=== PATIENT | female | born 1995 | race Caucasian/White ===

== ENCOUNTER 2018-04-30 09:50 | Emergency (ER) | payer SELFPAY ==
--- NOTE | 2018-04-30 10:46 | ED ---
GI/ HPI - HPI Summary HPI Summary: Pt. is a 23 y.o female who presents to the ER for evaluation of baumann catheter. Pt. states she was seen in [place] 3 days ago for urinary retention. She states they placed an indwelling baumann catheter and sent her home. Pt. presents today for further evaluation. She has no past medical history and denies taking any medications, rx or OTC. Denies recent surgery. 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 Pt. states pain occasionally radiates to bilateral legs with occasional parenthesias. She states she is ambulating without difficulty or weakness. Denies recent fever or illness. Symptoms are moderate in severity. No current modifying factors. - History of Current Complaint Chief Complaint: EDUrogenitalProblems Time Seen by Provider: 04/30/18 10:00 Stated Complaint: URINARY TRACT ISSUE Hx Obtained From: Patient Hx Last Menstrual Period: 10/18/15 Pain Intensity: 0 - Allergy/Home Medications Allergies/Adverse Reactions: Allergies Allergy/AdvReac Type Severity Reaction Status Date / Time No Known Allergies Allergy Verified 04/30/18 09:55 PMH/Surg Hx/FS Hx/Imm Hx Previously Healthy: Yes Infectious Disease History: No Infectious Disease History: Denies: Traveled Outside the [place] in Last 30 Days - Social History Occupation: Employed Full-time Lives: With Family Alcohol Use: None Substance Use Type: Reports: Marijuana Substance Use Comment - Amount & Last Used: DAILY Smoking Status (MU): Light Every Day Tobacco Smoker Type: Cigarettes Amount Used/How Often: 1/2 PK DAILY Length of Time of Smoking/Using Tobacco: 2 yrs Have You Smoked in the Last Year: No Review of Systems Constitutional: Negative Negative: Fever, Chills Gastrointestinal: Negative Positive: other - retention Positive: Other - Mild low back pain Negative: Weakness, Paresthesia, Numbness All Other Systems Reviewed And Are Negative: Yes Physical Exam Triage Information Reviewed: Yes Vital Signs On Initial Exam: Initial Vitals Temp Pulse Resp BP Pulse Ox 97.7 F 103 16 124/84 100 04/30/18 09:55 04/30/18 09:55 04/30/18 09:55 04/30/18 09:55 04/30/18 09:55 Vital Signs Reviewed: Yes Appearance: Positive: Well-Appearing - Pt. sitting up in bed in NAD. Mother present. Skin: Positive: Warm, Dry Head/Face: Positive: Normal Head/Face Inspection Eyes: Positive: Normal Musculoskeletal: Positive: Other - 5/5 strength in bilateral lower extremities with flexion and dorsiflexion. Legs are neurovascularly intact. 2/4 petallar DTR. Diagnostics - Vital Signs Vital Signs Temp Pulse Resp BP Pulse Ox 04/30/18 09:55 97.7 F 103 16 124/84 100 - Laboratory Result Diagrams: 04/30/18 11:52 04/30/18 11:52 Lab Statement: Any lab studies that have been ordered have been reviewed, and results considered in the medical decision making process. GIGU Course/Dx - Course Course Of Treatment: Pt. is a 23 y.o female presenting with urinary retention. She has some mild chronic low back pain but does not have neurological findings on exam. Case discussed with ER attending, Dr. Winn, who recommends urology consult. Urology was consulted, Dr. Nieves. He advises that urinary retention in a yound pt. is usually psychogenic but can be from pelvic mass, MS, ect. He suggested possible abdominal imaging to r/o mass and voiding trail. Basic labs and CT scan were ordered. Labs are unremarkable. CT scan is negative for acute findings but does show a large amount of stool in the lower colon. Results were discussed with pt. and will give mag citrate to evacuate bowels and attempt voiding trail. Pt. has good success with mag citrate. 200ml was placed in bladder an catheter was removed by nurse. Pt. was able to void twice after catheter was removed without difficulty. Urinalysis shows small blood, leukocytes, and epi cells, will send for culture. Post void bladder scan is 35cc. Suspect urinary retention was secondary to constipation. Pt. comfortable being dc home at this time. Advised to increase fluids and fiber in diet. To f.u with urology for an issues and return to ER for retention or if concerned. Pt. and mother understand and agree with plan. - Diagnoses Differential Diagnoses - Female: Constipation, Urinary Tract Infection, Ureteral Calculi Provider Diagnoses: Urinary retention, Constipation Discharge - Sign-Out/Discharge Documenting (check all that apply): Discharge/Admit/Transfer - Discharge Plan Condition: Good Disposition: HOME Patient Education Materials: Constipation (ED), Acute Urinary Retention in Women (ED) Referrals: No Primary Care Phys,NOPCP [Primary Care Provider] - John Nieves MD [Medical Doctor] - Additional Instructions: Call the urology office if symptoms return Increase fluids and fiber in diet Return to ER if symptoms return - Billing Disposition and Condition Condition: GOOD Disposition: Home
[2018-04-30 11:59] LABS: ABS Basophils 0.1 10^3/ul (0-0.2); ABS Eosinophils 0.1 10^3/ul (0-0.6); ABS Lymphocytes 1.8 10^3/ul (1.0-4.8); ABS Monocytes 0.4 10^3/ul (0-0.8); ABS Neutrophils 5.3 10^3/ul (1.5-7.7); ABS Nucleated RBC 0 10^3/ul; Eosinophil % 1.1 % (0-6); Hematocrit 45 % (35-47); Hemoglobin 15.2 g/dl (12.0-16.0); Lymphocyte % 23.6 % (25-47); Mean Corpuscular HGB Conc 34 g/dl (31-36); Mean Corpuscular Hemoglobin 31 pg (27-31); Mean Corpuscular Volume 91 fL (80-97); Nucleated Red Blood Cells % 0; Platelet Count 443 10^3/ul (150-450); Red Blood Count 4.94 10^6/ul (4.0-5.4); Red Cell Distribution Width 14 % (10.5-15); White Blood Count 7.7 10^3/ul (3.5-10.8)
[2018-04-30 12:17] LABS: EGFR Non-African American 111.1 (>60)
[2018-04-30] MEDS ORDERED: Iohexol 300* (CONTRAST) 10 ML SDV IV ONE (12:33)
--- NOTE | 2018-04-30 13:07 | RAD ---
CLINICAL HISTORY: urinary retention. r/o mass COMPARISON: None TECHNIQUE: Multiple contiguous axial CT scans were obtained of the abdomen and pelvis after the administration of intravenous contrast. Coronal and sagittal multiplanar reformations are submitted for review. Oral contrast was administered. Delayed images were obtained through the abdomen. FINDINGS: LUNG BASES: The lung bases are clear. LIVER: The liver is normal in shape, size, contour, and attenuation. BILE DUCTS: There is no intrahepatic or extrahepatic biliary dilatation. GALLBLADDER: The gallbladder is normal, without pericholecystic inflammatory change. PANCREAS: The pancreas is normal, without mass or ductal dilatation. SPLEEN: Normal in size and appearance. UPPER GI TRACT: Evaluation of the gastrointestinal tract is limited by incomplete gastric distention. The upper GI tract is unremarkable. SMALL BOWEL AND MESENTERY: The small bowel is normal in contour, course, and caliber. There is no obstruction or dilatation. COLON: The colon is normal in contour, course, caliber. There is no pericolonic inflammatory change. There is a large amount of stool within the distal colon. ADRENALS: Normal bilaterally. KIDNEYS: The kidneys are normal in shape, size, contour, and axis. There is no hydronephrosis or nephrolithiasis. BLADDER: The bladder is collapsed around a Mason catheter. PELVIC ORGANS: The uterus and adnexa are grossly normal for technique. AORTA: The aorta is normal. IVC: Unremarkable LYMPH NODES: There is no lymphadenopathy by size criteria. ABDOMINAL WALL: There is no evidence for abdominal wall hernia. BONES AND SOFT TISSUES: Unremarkable OTHER: None IMPRESSION: NO ACUTE CT PATHOLOGY OF THE VISUALIZED ABDOMEN OR PELVIS.
[2018-04-30] MEDS ORDERED: Magnesium CITRATE* 300 ML BTL PO ONE (13:18)
[2018-04-30 14:59] LABS: Urine Appearance Cloudy; Urine Blood 1+ (Negative); Urine Color Yellow; Urine Ketones Negative (Negative); Urine Protein Negative (Negative); Urine Specific Gravity 1.056 (1.010-1.030); Urine Urobilinogen Negative (Negative)
[2018-04-30 15:21] VITALS: BP 120/72
== END 2018-04-30 15:19 | disposition home or self-care (01) ==
LOC: ED 09:50
DX: R10.30 Lower abdominal pain, unspecified (principal); F17.200 Nicotine dependence, unspecified, uncomplicated; Z88.5 Allergy status to narcotic agent; Z88.8 Allergy status to other drugs, medicaments and biological substances
CPT/HCPCS: 36415; 74177; 80053; 81003; 81015; 84702; 85025; 87086; 99284; A9270-GY; Q9967

== ENCOUNTER 2019-07-08 17:19 | Emergency (ER) | payer SELFPAY ==
--- NOTE | 2019-07-08 18:32 | UC ---
- HPI Summary HPI Summary: 24-year-old female presents for "lump" in her left breast. States she discovered the lump approximately 2 months ago. States tender to touch. She thinks it may have increased in size some. Pain has not changed since first finding. Reports 4 of her father's sisters have history of breast cancer. Denies fever, chills, erythema, or discharge. - History of Current Complaint Hx Obtained From: Patient - Allergy/Home Medications Allergies/Adverse Reactions: Allergies Allergy/AdvReac Type Severity Reaction Status Date / Time No Known Allergies Allergy Verified 07/08/19 17:23 PMH/Surg Hx/FS Hx/Imm Hx Previously Healthy: Yes - Denies significant PMH - Surgical History Surgical History: None - Family History Known Family History: Positive: Other - Breast Ca (father with 4 sisters with breast cancer) - Social History Occupation: Unemployed Lives: With Family Alcohol Use: Rare Substance Use Type: Marijuana Substance Use Comment - Amount & Last Used: DAILY Smoking Status (MU): Heavy Every Day Tobacco Smoker Type: Cigarettes Amount Used/How Often: 1/2 PK DAILY Length of Time of Smoking/Using Tobacco: 2 yrs Have You Smoked in the Last Year: No Household Exposure Type: Cigarettes Review of Systems All Other Systems Reviewed And Are Negative: Yes Physical Exam - Summary Physical Exam Summary: GENERAL APPEARANCE: Well developed, well nourished, alert and cooperative, and appears to be in no acute distress. CARDIAC: Normal S1 and S2. No S3, S4 or murmurs. Rhythm is regular. There is no peripheral edema, cyanosis or pallor. Extremities are warm and well perfused. Capillary refill is less than 2 seconds. Peripheral pulses intact. LUNGS: Clear to auscultation without rales, rhonchi, wheezing or diminished breath sounds. BREASTS: Fibrocystic breast changes to bilateral breasts. No specific mass or dimpling was detected. No nipple discharge. No axillary lymphadenopathy. ABDOMEN: Positive bowel sounds. Soft, nondistended, nontender. No guarding or rebound. No masses or hepatosplenomegally. MUSKULOSKELETAL: ROM intact to all extremities. No joint erythema or tenderness. Normal muscular development. Normal gait. SKIN: Skin normal color, texture and turgor with no lesions or eruptions. Triage Information Reviewed: Yes Vital Signs: Initial Vital Signs Temp 98.6 F 07/08/19 17:21 Pulse 80 07/08/19 17:21 Resp 16 07/08/19 17:21 BP 137/91 07/08/19 17:21 Pulse Ox 100 07/08/19 17:21 Vital Signs Reviewed: Yes Breast Pain Course/Dx - Course Course Of Treatment: 24-year-old female presents for "lump" in her left breast. States she discovered the lump approximately 2 months ago. States tender to touch. She thinks it may have increased in size some. Pain has not changed since first finding. Reports 4 of her father's sisters have history of breast cancer. Denies fever, chills, erythema, or discharge. Afebrile. Vital signs stable. Patient had fibrocystic breast changes to bilateral breasts. No specific mass or dimpling was detected. No nipple discharge. No axillary lymphadenopathy. Remainder of exam was unremarkable. Discussed findings with patient and recommending outpatient follow-up as she has no findings that are of immediate concern. Patient is to follow-up with women's health in 7-10 days. Anticipatory guidance and warning symptoms reviewed with the patient. Verbalizes understanding and agrees with plan of care. - Differential Diagnoses Differential Diagnosis/HQI/PQRI: Breast Abscess, Breast Mass, Fibrocystic Breast Disease - Diagnoses Provider Diagnoses: Breast tenderness in female, Fibrocystic breast changes of both breasts Discharge - Sign-Out/Discharge Documenting (check all that apply): Patient Departure Patient Received Moderate/Deep Sedation with Procedure: No - Discharge Plan Condition: Stable Disposition: HOME Patient Education Materials: Fibrocystic Breast Changes (ED) Referrals: No Primary Care Phys,NOPCP [Primary Care Provider] - Lety Hernandez MD [Medical Doctor] - 7 Days (Call for appointment.) Additional Instructions: You have some fibrocystic breast changes on your exam but nothing that is of immediate concern. Considering the tenderness you probably need to have an outpatient evaluation done. Take acetaminophen (Tylenol) see or ibuprofen (Advil, Motrin) according directions as needed for pain. Follow up with [facility] in 7-10 days for further evaluation. Return to the emergency room if you develop fever greater than 100.5 F, redness or swelling of the breast, discharge from the nipple, severe pain that is not managed with pain medication, or any worsening of your symptoms. - Billing Disposition and Condition Condition: STABLE Disposition: Home
[2019-07-08 19:06] VITALS: BP 122/79
== END 2019-07-08 19:05 | disposition home or self-care (01) ==
LOC: ED 17:19
DX: N64.4 Mastodynia (principal); N60.12 Diffuse cystic mastopathy of left breast; N60.11 Diffuse cystic mastopathy of right breast; Z80.3 Family history of malignant neoplasm of breast; Z87.891 Personal history of nicotine dependence
CPT/HCPCS: 99281